=== PATIENT | male | born 1990 ===

== ENCOUNTER → 2023-05-09 09:37 | Outpatient (CLI) | payer BC, SELFPAY ==
--- NOTE | ~2023-05-09 | CT_ITS ---
EXAMINATION: CT abdomen pelvis w con DATE: 05/09/2023 09:57 INDICATION: Abdominal pain TECHNIQUE: Computed tomography (CT) of the abdomen and pelvis was performed with 100 mL Omnipaque-350 intravenous contrast. Automated exposure control and iterative reconstruction technique were employe d. The dose-length product was 460.99 mGy-cm. COMPARISON: None FINDINGS: Lung bases are clear. Heart size is normal. No pericardial or pleural effusion. Liver, gallbladder, s pleen, pancreas, bilateral adrenal glands and kidneys are normal. There are few scattered colonic div erticula without adjacent inflammatory stranding to suggest diverticulitis. No abnormal bowel wall th ickening or obstruction. Normal appendix. Bladder is normal. No free intraperitoneal gas or fluid. No pathologically enlarged abdominal or pelvic lymphadenopathy. Mild lumbar spondylosis. 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 A few small bone islands malcolm r the left hip. IMPRESSION: 1. No acute intra-abdominal/pelvic process. Reviewed, dictated and finalized at location [facility]. [facility]
== END ==
DX: R10.9 Unspecified abdominal pain (principal)
CPT/HCPCS: 74177; Q9967